=== PATIENT | female | born 1970 | race Caucasian/White ===

== ENCOUNTER 2022-03-24 12:51 | Outpatient (CLI) | payer BC, SELFPAY ==
--- NOTE | 2022-03-24 12:45 | RT.EKG_ITS ---
APPROVED REPORT Exam: Resting ECG Reason for Exam: lightheadedness Patient Location: O HR:47 bpm ECG Measurements Heart Rate 47 AXIS IN 150 P 34 QRSd 101 QRS 35 QT 477 T 53 QTc 422 Conclusion Sinus bradycardia...rate< 50 RSR' in V1 or V2, probably normal variant...small R' only Normal Electrocardiogram
== END 2022-03-24 12:52 | disposition home or self-care (01) ==
LOC: DI.CM 12:52
PROVIDERS: Visit Provider Physician Assistant
DX: R42 Dizziness and giddiness (principal)
CPT/HCPCS: 93010

== ENCOUNTER → 2022-03-29 03:18 | Outpatient (CLI) | payer BC, SELFPAY ==
--- NOTE | 2022-03-29 07:15 | DI.RAD_ITS ---
Exam(s) XR CHEST 2V PA LATERAL EXAM: XR CHEST 2V PA LATERAL CLINICAL HISTORY: back pain, lightheadedness, R42, dizziness, pain between shoulders, ? fluid. TECHNIQUE: 2D digital imaging was performed. COMPARISON: No exams were available for comparison FINDINGS: 2 views: There is platelike atelectasis in the right lung base. Left lung clear. No pleural effusions. Heart size is normal. The mediastinum is not widened. IMPRESSION: There is platelike atelectasis in the right lower lobe. No pleural effusions. DATA REPOSITORY: RADIATION DOSE DELIVERED:
== END ==
PROVIDERS: Visit Provider Physician Assistant
DX: R42 Dizziness and giddiness (principal); J98.11 Atelectasis
CPT/HCPCS: 71046

== ENCOUNTER 2022-03-30 11:09 | Outpatient (CLI) | payer BC, SELFPAY ==
[2022-03-30 12:26] LABS: Abs Immature Grans 0.01 10^3/uL (0.0-0.06); Absolute Basophil Count 0.06 10^3/uL (0.0-0.2); Absolute Eosinophil Count 0.12 10^3/uL (0.0-0.7); Absolute Lymphocyte Count 2.31 10^3/uL (1.2-3.4); Absolute Monocyte Count 0.56 10^3/uL (0.1-0.8); Basophils % 0.9; Eosinophils % 1.9; HCT 34.4 % (36.0-46.0); HGB 11.1 g/dL (11.2-15.7); Immature Grans % 0.2; Lymphocytes % 35.8; MCH 24.7 pg (27.0-33.0); MCHC 32.3 % (32.0-36.0); MCV 76 fL (80-95); MPV 9.5 fL (8.0-11.0); Monocytes % 8.7; Neutrophils % 52.5; Platelet Count 333 10^3/uL (130-400); RDW 15.1 % (11.7-14.6); RDW-SD 41.5 fL; WBC 6.46 10^3/uL (4.4-10.8)
[2022-03-30 12:50] LABS: ALT 17 U/L (14-59); AST 12 U/L (15-37); Alkaline Phosphatase 49 U/L (46-116); Anion Gap 9.5 mmol/L (3-11); BUN 13 mg/dL (7-18); Bilirubin, Total 0.2 mg/dL (0.2-1.0); CO2 27.5 mmol/L (21.0-32.0); CREATININE 1.2 mg/dL (0.55-1.02); Calcium 9.2 mg/dL (8.5-10.1); Chloride 102 mmol/L (98-107); Estimated GFR 55.15 (mL/min/1.73m2); Glucose 85 mg/dL (74-106); Sodium 139 mmol/L (136-145); TSH (W/Ref FT4) 0.86 uIU/mL (0.36-3.74); Total Protein 7.9 g/dL (6.4-8.2)
[2022-03-30 13:04] LABS: D-Dimer 466 ng/mlFEU (<500)
[2022-04-02 10:21] LABS: Lyme Ab w Rflx to Lyme Confirm Negative (Negative)
[2022-04-02 18:31] LABS: Anaplasma phagocytophilum Negative (Negative); B. miyamotoi PCR Negative (Negative); Babesia divergens/MO-1 Negative (Negative); Babesia duncani Negative (Negative); Babesia microti Negative (Negative); Ehrlichia chaffeensis Negative (Negative); Ehrlichia ewingii/canis Negative (Negative); Ehrlichia muris eauclairensis Negative (Negative)
== END 2022-03-30 11:10 | disposition home or self-care (01) ==
LOC: LOS 11:09
PROVIDERS: Visit Provider Physician Assistant
DX: R42 Dizziness and giddiness (principal); R53.83 Other fatigue; R63.5 Abnormal weight gain; R06.02 Shortness of breath
CPT/HCPCS: 36415; 80053; 87798; 84443; 85025; 85379; 86618

== ENCOUNTER 2022-08-24 01:28 | Outpatient (CLI) | payer OTHER, SELFPAY ==
[2022-08-24 08:05] LABS: HCT 33.8 % (36.0-46.0); HGB 10.7 g/dL (11.2-15.7); MCH 24.3 pg (27.0-33.0); MCHC 31.7 % (32.0-36.0); MCV 77 fL (80-95); MPV 8.8 fL (8.0-11.0); Platelet Count 376 10^3/uL (130-400); RDW 15.2 % (11.7-14.6); RDW-SD 42.6 fL; WBC 7.42 10^3/uL (4.4-10.8)
[2022-08-24 09:05] LABS: Total Iron Binding Capacity 362 ug/dL (250-450)
[2022-08-24 09:29] LABS: ALT 14 U/L (14-59); AST 15 U/L (15-37); Albumin 4.1 g/dL (3.4-5.0); Alkaline Phosphatase 64 U/L (46-116); Anion Gap 6.2 mmol/L (3-11); BUN 17 mg/dL (7-18); Bilirubin, Total 0.3 mg/dL (0.2-1.0); CO2 28.8 mmol/L (21.0-32.0); CREATININE 1.2 mg/dL (0.55-1.02); Calcium 9.3 mg/dL (8.5-10.1); Calculated LDL 157 mg/dL (<100); Chloride 103 mmol/L (98-107); Cholesterol 242 mg/dL (<200); Ferritin 7 ng/mL (8-252); Glucose 88 mg/dL (74-106); HDL Cholesterol 63 mg/dL (40-60); Potassium 3.9 mmol/L (3.5-5.1); Sodium 138 mmol/L (136-145); Total Protein 7.8 g/dL (6.4-8.2); Triglyceride 112 mg/dL (<150); Vitamin B12 590 pg/mL (193-986)
[2022-08-24 09:32] LABS: Vitamin D 25 Total 98.3 ng/mL (30-100)
== END 2022-08-24 01:29 | disposition home or self-care (01) ==
LOC: LBO 01:28
PROVIDERS: PCP Nurse Practitioner; Visit Provider Nurse Practitioner
DX: E78.5 Hyperlipidemia, unspecified (principal); E55.9 Vitamin D deficiency, unspecified; D64.9 Anemia, unspecified
CPT/HCPCS: 36415; 80053; 80061; 82306; 85027; 82607; 82728; 83550

== ENCOUNTER 2022-08-28 13:24 | Outpatient (CLI) | payer OTHER, SELFPAY | END 2022-08-28 13:25 | disposition home or self-care (01) | LOC: DI.KIM 13:25 | PROVIDERS: PCP Nurse Practitioner; Visit Provider Nurse Practitioner | CPT/HCPCS: 93010 ==

== ENCOUNTER 2022-09-07 00:22 | Outpatient (CLI) | payer OTHER, SELFPAY ==
--- NOTE | 2022-09-07 06:45 | DI.MAMMO_ITS ---
Exam(s) MAMMO SCREENING EXAM: MAMMO SCREENING CLINICAL HISTORY: screening,Z12.39 TECHNIQUE: Bilateral full field digital CC and MLO mammographic images were obtained with 3D tomosyn thesis and utilizing computer aided detection (CAD). COMPARISON: Available for comparison. FINDINGS: Masses/Architectural Distortion: There is a question of a partially obscured bilobed nodule in the up per left breast on the MLO view. It is 6 cm from the nipple. Microcalcifications: No suspicious pleomorphic-type are seen. Skin Thickening/Nipple Retraction: None. IMPRESSION: 1. Question of a partially obscured nodule in the upper left breast on the MLO view. 2. Spot compression views requested for further evaluation. Limited left breast ultrasound should al so be obtained. BI-RADS Category 0 - Assessment Incomplete: Need additional imaging evaluation Breast Density - Category C - Heterogeneously dense Breast density category C or D implies that the patient has dense breast tissue. Dense breast tissue is very common and is not abnormal but dense breast tissue can make it harder to find cancer on a ma mmogram. Also, dense breast tissue may increase their breast cancer risk. This information about the result of the mammogram report was provided to the patient to raise their awareness. Use this report when you speak with the patient about their risks for breast cancer, which includes their family hist ory. At that time, you may recommend for more screening tests (Ultrasound or MRI) as they might be us eful based on their risk. A negative radiographic report should not delay biopsy if a dominant or clinically suspicious mass is present. Up to ten percent of cancers are not identified on mammography. A negative report may reinforce clinical impression. Adenosis and dense breasts may obscure an underlying neoplasm. False positive reports average 6 to 10%. Patient will receive a letter notifying them of these results.
== END 2022-09-07 00:42 ==
LOC: DI 00:22
PROVIDERS: PCP Nurse Practitioner; Visit Provider Nurse Practitioner
DX: Z12.31 Encounter for screening mammogram for malignant neoplasm of breast (principal); R92.8 Other abnormal and inconclusive findings on diagnostic imaging of breast
CPT/HCPCS: 77063; 77067

== ENCOUNTER 2022-09-07 14:58 | Outpatient (REF) | payer OTHER, SELFPAY ==
--- NOTE | 2022-09-07 13:40 | PAPFT_PTH ---
PATIENT: Amelia Arguello LOC: [facility] U#:[id number] AGE/SX: 52/F ROOM: RE09/07/[address]: Mer Lord MD : 1970 BED: DIS: 09/07/2022 SPEC #: [id number] RECD: 09/07/22 18:21 STATUS: HERMAN REHeather #: [id number] MAEGAN: 09/07/22 13:[address]: Mer Lord DEPT: [facility] Cytology RECD BY: Maude Conley ENTERED: 09/07/22 18:22 SP TYPE: PAPFT MARK DR: Elizabeth Garcia APRN Tissues: 1 - CX/ENDOCX FOR PAP SMEARS Procedures: PAP THIN PREP/UVM Screening HPV DNA PROBE Comments: [id number]
== END 2022-09-07 14:59 | disposition home or self-care (01) ==
LOC: LBN 14:58
PROVIDERS: PCP Nurse Practitioner; Visit Provider Obstetrics & Gynecology
DX: Z12.4 Encounter for screening for malignant neoplasm of cervix (principal); Z11.51 Encounter for screening for human papillomavirus (HPV)
CPT/HCPCS: 88142; 87624

== ENCOUNTER 2022-09-28 00:18 | Outpatient (CLI) | payer OTHER, SELFPAY ==
--- NOTE | 2022-09-28 | DI.US_ITS ---
Exam(s) MG MAMMO SCREEN CALL BACK UNI US BREAST LT COMPLETE EXAM: MG MAMMO SCREEN CALL BACK UNI-LEFT AND COMPLETE LEFT BREAST ULTRASOUND CLINICAL HISTORY: F/U MAMMO, R92.8,? NODULE UPPER LT BREAST. TECHNIQUE: Unilateral LEFT BREAST spot mammographic image obtained with 3D tomosynthesisand [employer] g computer aided detection (CAD). . Complete LEFT breast Ultrasound was also performed, including all 4 quadrants, the retroareolar regio n, and the ipsilateral axilla. COMPARISON: Prior mammograms were reviewed. This additional imaging was performed due to findings described on the recent screening mammogram of 09/07/2022. FINDINGS: DIAGNOSTIC MAMMOGRAM: Additional mammographic views performed todayare somewhat equivocal for the presence of a true nodule at this level. We proceeded with ultrasound. COMPLETE LEFT BREAST ULTRASOUND: Ultrasound performed today reveals multiple cysts, 1 of which may correspond to the finding on the ma mmogram. No solid lesions seen on ultrasound. Cysts are as follows: The largest cyst is at the 3 o'clock position and measures 2.4 by 1.2 cm. Adjacent to this is a smal ler microcyst measuring 4 millimeters. At the 4 o'clock position there is a benign 4 millimeter microcyst also noted. At the 8 o'clock position there is a 6 x 2 millimeter benign microcyst. At the 9 o'clock central position there is a conglomeration of microcysts with combined measurement 1 1 x 10 millimeters. Also at 9 o'clock central position are 2 adjacent microcysts both measuring 6 mm. Scanning of the ipsilateral axilla reveals no significant adenopathy. IMPRESSION: 1. Benign left breast findings as described above, consisting of multiple microcysts and cysts rangi ng up to maximum 2.4 x 1.2 cm (3 o'clock position) these being hidden subjacent to her dense fibrogla ndular tissue on 3D mammography. Most importantly, there are no solid lesions seen in all 4 quadrant s of the left breast. Appropriate follow-up as discussed by myself with the patient today is to keep her on a yearly mammog jaye schedule, with earlier imaging if a self detected breast change is noted. In addition she should undergo repeat breast ultrasound at time for next yearly mammogram and I recommend that this be a bi lateral complete breast ultrasound at that time. The patient was informed of these findings and recommendations by myself prior to leaving the depart ent today. BI-RADS Category 2 - Benign Findings Breast Density - Category C - Heterogeneously dense Breast density Category C or D implies that the patient has dense breast tissue. Dense breast tissue can make it harder to find cancer on a mammogram. Dense breast tissue is also associated with an incr eased risk of breast cancer. This information about the result of the mammogram report was provided to the patient to raise their awareness. Use this report when you speak with the patient about their risks for breast cancer, which includes their family history. At that time, you may recommend additional screening tests (Ultrasoun d or MRI) as these tests may add significant information. A negative radiographic report should not delay biopsy if a dominant or clinically suspicious mass is present. Up to ten percent of cancers are not identified on mammography. A negative report may reinforce clinical impression. Adenosis and dense breasts may obscure an underlying neoplasm. False positive reports average 6 to 10%. Patient will receive a letter notifying them of these results.
== END 2022-09-28 00:38 ==
LOC: DI 00:18
PROVIDERS: PCP Nurse Practitioner; Visit Provider Nurse Practitioner
DX: Z12.31 Encounter for screening mammogram for malignant neoplasm of breast (principal); R92.8 Other abnormal and inconclusive findings on diagnostic imaging of breast; N60.12 Diffuse cystic mastopathy of left breast
CPT/HCPCS: 76642; 77063; 77067

== ENCOUNTER 2022-12-18 15:26 | Emergency (ER) | payer OTHER, SELFPAY ==
[2022-12-18 15:29] VITALS: BP 176/98; PULSE 72; RESP 18; TEMP 36.6; O2SAT 98
--- NOTE | 2022-12-18 15:30 | RT.EKG_ITS ---
APPROVED REPORT Exam: Resting ECG Reason for Exam: high blood pressure Patient Location: E HR:60 bpm ECG Measurements Heart Rate 60 AXIS SD 143 P 36 QRSd 71 QRS 24 QT 416 T 65 QTc 417 Conclusion Sinus rhythm...normal P axis, V-rate 60- 99
--- NOTE | 2022-12-18 16:10 | ED.GENADUL_ITS ---
Discharge Plan Disposition Patient Disposition: Home Condition: Improving Discharge Details Clinical Impression: Hypertension Primary Care Provider: Elizabeth Garcia ED Provider: Marisol Miles Home Meds and New Rx's Prescriptions: New lisinopril 10 mg tablet 10 mg PO DAILY 30 Days Qty: 30 0RF Rx Instructions: Take one tablet by mouth daily Continued cholecalciferol (vitamin D3) 125 mcg (5,000 unit) capsule 125 mcg PO DAILY omeprazole 20 mg tablet,delayed release (DR/EC) 20 mg PO DAILY bupropion HCl [Wellbutrin XL] 300 mg tablet extended release 24 hr 300 mg PO QAM Qty: 90 1RF hydroxyzine HCl 25 mg tablet See Rx Instructions PO QHS PRN (Reason: anxiety) Qty: 180 1RF Rx Instructions: orally every day at bedtime PRN; 1-2 at HS PRN vitamin B complex Tablet 1 tab PO DAILY magnesium glycinate 100 mg magnesium capsule 100 mg PO DAILY levonorgestrel-ethinyl estrad 0.1-20 mg-mcg tablet 1 tab PO DAILY Qty: 84 6RF Rx Instructions: Take continuously. Skip the placebo pills at the end of the pack and start the next pack right away. famotidine 20 mg tablet 20 mg PO QHS lisdexamfetamine 40 mg capsule 40 mg PO DAILY MDD 40mg Qty: 28 0RF Discharge Instructions Instructions: Hypertension (ED) Additional Instructions: Check your blood pressure at the same time every day. Take the medication as directed. Please discuss this with your primary care provider and have close follow-up within the next few days. Follow up with primary care provider in 3-5 days. Return to ED sooner if any worsening or concerns. Increase oral fluids. EKG and labs are within normal limits. CT WNL. Referrals: Elizabeth Garcia, [employer] [Primary Care Provider] - 3 days Medical Decision Making 52-year-old female presents to the ER with a chief complaint of high blood pressure reading, fatigue mild headache which she describes as pressure in the last few days. She does have a history of depression anxiety ADHD. She reports taking a propanolol which she has for anxiety and noting that her blood pressure went up. She denies any chest pain she does have some mild shortness of breath. Some mild nausea. Denies any vomiting no blurry vision. She was seen with women's wellness yesterday and they noted high blood pressure as well. No other associated symptoms. EKG was reviewed by Dr. Cadet ER attending, please see his official report, old EKG available for review. Work-up ordered including CBC, troponin magnesium CMP. Did discuss that we do not regularly drop blood pressure significantly unless it is very high in the ER. This is usually done through primary care. Patient very tearful upon discharge. Discussed blood pressure medication and reasoning behind it. She verbalized understanding. I did discuss the reasoning at length. 1816: Informed by medical staff services coordinator that patient is now complaining of some sharp chest pain radiating underneath her left breast. CT chest ordered. CBC shows no leukocytosis, CMP largely unremarkable creatinine is slightly elevated at 1.2 however this does appear to be at patient's baseline, initial troponin is less than 50 which is within normal limits. CT within normal limits no dissection, no PE. No aortic aneurysm. Repeat blood pressure slightly lower at 167/99 after 10 milligrams of lisinopril. Will discuss CT results with patient and have patient follow-up with PCP. Patient given 0.5mg Lorazepam PO prior to discharge. This text was generated using [employer] system, please disregard any oddities of phrase or misspellings. Medical Records Medical records reviewed: Yes I reviewed the patient's medical records. Imaging Data Radiologic Study: Imaging: CT Scan Radiologist's impression: CR XR CHEST 2V PA LATERAL 03/29/2022 8:26 AM FINDINGS: Pulmonary arteries: No pulmonary emboli. Aorta: No aortic aneurysm. No aortic dissection. Lungs: Minimal subsegmental atelectasis at the lung bases. No consolidation. No masses. Pleural spaces: Unremarkable. No pneumothorax. No pleural effusion. Heart: Unremarkable. No cardiomegaly. No pericardial effusion. Lymph nodes: Unremarkable. No enlarged lymph nodes. Bones/joints: Unremarkable. No acute fracture. Soft tissues: Unremarkable. A small hiatal hernia is detected. Prior cholecystectomy IMPRESSION: No acute findings. No pulmonary emboli or aortic dissection Small hiatal hernia Thank you for allowing us to participate in the care of your patient. Dictated and Authenticated by: Grant Nuñez MD Lab Data Lab results reviewed: Yes I reviewed the patient's lab results. Labs: Laboratory Tests Range/Units 12/18/22 12/18/22 12/18/22 16:30 16:30 19:10 WBC (4.4-10.8) 10^3/uL 9.08 RBC (3.93-5.22) 10^6/uL 4.92 Hgb (11.2-15.7) g/dL 12.1 Hct (36.0-46.0) % 36.8 MCV (80-95) fL 75 L MCH (27.0-33.0) pg 24.6 L MCHC (32.0-36.0) % 32.9 RDW (11.7-14.6) % 17.0 H Plt Count (130-400) 10^3/uL 376 MPV (8.0-11.0) fL 9.1 Immature Gran % 0.2 Neutrophils % 53.9 Lymphocytes % 38.0 Monocytes % 5.9 Eosinophils % 1.2 Basophils % 0.8 Nucleated RBC % (0.0-0.3) % 0.0 Absolute Neutrophils (1.2-6.7) 10^3/uL 4.89 Absolute Lymphocytes (1.2-3.4) 10^3/uL 3.45 H Absolute Monocytes (0.1-0.8) 10^3/uL 0.54 Absolute Eosinophils (0.0-0.7) 10^3/uL 0.11 Absolute Basophils (0.0-0.2) 10^3/uL 0.07 RBC Morphology See Below Microcytosis 1+ Sodium (136-145) mmol/L 138 Potassium (3.5-5.1) mmol/L 3.9 Chloride (98-107) mmol/L 105 Carbon Dioxide (21.0-32.0) mmol/L 25.3 Anion Gap (3-11) mmol/L 7.7 BUN (7-18) mg/dL 13 Creatinine (0.55-1.02) mg/dL 1.2 H Est GFR (CKD-EPI 2020) (mL/min/1.73m2) 54.80 Glucose (74-106) mg/dL 93 Calcium (8.5-10.1) mg/dL 8.8 Magnesium (1.8-2.4) mg/dL 2.3 Total Bilirubin (0.2-1.0) mg/dL 0.2 AST (15-37) U/L 15 ALT (14-59) U/L 28 Alkaline Phosphatase (46-116) U/L 64 Troponin I (<or=60) ng/L < 50 Cancelled Total Protein (6.4-8.2) g/dL 7.6 Albumin (3.4-5.0) g/dL 3.7 HPI General Mode of arrival: ambulatory . Date/Time Provider Initiated Documentation: 12/18/22 15:33 . Limitations to Documentation: no limitations . Information obtained by: patient, RN notes reviewed and old records reviewed . HPI Narrative: 52-year-old female presents to the ER with a chief complaint of high blood pressure reading, fatigue mild headache which she describes as pressure in the last few days. She does have a history of depression anxiety ADHD. She reports taking a propanolol which she has for anxiety and noting that her blood pressure went up. She denies any chest pain she does have some mild shortness of breath. Some mild nausea. Denies any vomiting no blurry vision. She was seen with women's wellness yesterday and they noted high blood pressure as well. No other associated symptoms. Related Data Home Medications Medication Instructions Recorded Confirmed cholecalciferol (vitamin D3) 125 125 mcg PO DAILY 03/24/22 12/18/22 mcg (5,000 unit) capsule omeprazole 20 mg tablet,delayed 20 mg PO DAILY 03/24/22 12/18/22 release bupropion HCl 300 mg 24 hr tablet, 300 mg PO QAM #90 tabs 08/14/22 12/18/22 extended release (Wellbutrin XL) hydroxyzine HCl 25 mg tablet See Rx Instructions PO QHS PRN 08/14/22 12/18/22 anxiety #180 tabs levonorgestrel-ethinyl estradiol 1 tab PO DAILY #84 tabs 09/07/22 12/18/22 0.1 mg-20 mcg tablet magnesium glycinate 100 mg PO DAILY 09/07/22 12/18/22 vitamin B complex 1 tab PO DAILY 09/07/22 12/18/22 lisdexamfetamine 40 mg capsule 40 mg PO DAILY #28 caps 11/14/22 12/18/22 famotidine 20 mg tablet 20 mg PO QHS 12/18/22 12/18/22 lisinopril 10 mg tablet 10 mg PO DAILY 30 days #30 tabs 12/18/22 Previous Rx's Medication Instructions Recorded bupropion HCl 300 mg 24 hr tablet, 300 mg PO QAM #90 tabs 08/14/22 extended release (Wellbutrin XL) hydroxyzine HCl 25 mg tablet See Rx Instructions PO QHS PRN 08/14/22 anxiety #180 tabs levonorgestrel-ethinyl estradiol 1 tab PO DAILY #84 tabs 09/07/22 0.1 mg-20 mcg tablet lisdexamfetamine 40 mg capsule 40 mg PO DAILY #28 caps 11/14/22 lisinopril 10 mg tablet 10 mg PO DAILY 30 days #30 tabs 12/18/22 Allergies Allergy/AdvReac Type Severity Reaction Status Date / Time Penicillins Allergy Severe Hives Verified 12/18/22 10:13 prochlorperazine Allergy Severe torticolus Verified 12/18/22 10:13 [From Compazine] and muscle spasms promethazine Allergy Severe torticolitis Verified 12/18/22 10:13 and other muscle spasms nystatin Allergy Intermediate rash Verified 12/18/22 10:13 worsened citalopram AdvReac Unknown Verified 12/18/22 10:13 escitalopram [From Lexapro] AdvReac Unknown Intolerant Verified 12/18/22 10:13 due to Side effects paroxetine [From Paxil] AdvReac Unknown side Verified 12/18/22 10:13 effects General Stated Complaint: [employer] RADHAMES: 3 PFSH All Active Problems (Updated 12/18/22 @ 17:10 by Marisol Miles NP) Depression (Chronic) Anxiety (Chronic) ADHD (Acute) Seasonal allergies (Acute) Autism (Acute) Stress incontinence of urine (Acute) Perimenopausal (Acute) Premenstrual dysphoric disorder (Acute) Binge eating disorder (Acute) Elevated BP without diagnosis of hypertension (Acute) Hypertension (Chronic) Medical History (Updated 12/18/22 @ 17:10 by Marisol Miles NP) H/O hyperemesis gravidarum with all Polycystic ovarian syndrome Surgical History (Updated 05/25/22 @ 10:39 by Eun Ba RN, RN) S/P cholecystectomy 04/12 AT [facility] Family History (Updated 05/25/22 @ 11:18 by Eun Ba RN, RN) Mother Anxiety Depression Hypertension Sister Anxiety Depression Daughter Anxiety Depression Son Anxiety Depression Father Hypertension Glioblastoma Daughter No problems noted. Son No problems noted. Daughter No problems noted. Son No problems noted. Daughter No problems noted. Daughter No problems noted. Son No problems noted. Daughter No problems noted. Paternal Grandmother Breast cancer Diabetes Social History (Updated 08/14/22 @ 15:46 by Kia Clark LPN) Smoking/Tobacco Use Status: Former Tobacco Use tobacco type: cigarettes Quit Date: 07/29/14 Tobacco: How many years used: 11 Quit status: has quit before Second Hand Exposure: No Smoking risk assessment performed?: Yes Alcohol Intake: current Alcohol Intake frequency: a few times a month Drug use: Occasionally Substance use type: marijuana Adopted: No Caregiver/Support person: No Foster care: No Household members: spouse and children Housing: house Number of Children: 10 number of grandchildren: 1 Communication Needs: None Education Level: vocational Do you need help understanding health information?: Rarely current occupation: Unemployed Student - nursing school Pets and animals: Yes (2 cats, 1 dog) Pets and animals: cat(s) and dog(s) Sexually active: Yes Do you think of yourself as: straight/heterosexual Current gender identity: female What is your relationship status?: How often do you talk on the phone with friends or family?: once per week Do you belong to any clubs or organized social groups?: no Panel score (0-1 are the most socially isolated patients): 1 What type of physical activity do you participate in: walking Duration: 15-30 minutes/day Frequency: 1-2 times per week Shivani/Islam: Sabianism Special shivani needs: No Seatbelt use: always Helmet use: Yes Drive intox or ride w/intox feeder driver: No Do you feel safe at home: Yes Do you feel safe in your relationship?: Yes Female Reproductive History Menstrual Age of Menarche: 13 Duration of menses: 3-5 days control method: natural family planning History History 12 Para Hx # Term Pregnancies 10 Multiple births Hx # Pregnancies Ectopic pregnancies AB induced Hx Number of Living Children AB spontaneous Past Pregnancies Del. Date GA/Weeks # Preg Succ Route Wgt Sex Labor Lgth Anesth esia Location [facility] 09/28/89 40 No Yes vaginal Female [place] 12/05/91 40 No Yes vaginal 3288.545 g Female [facility] 02/09/95 40 No Yes vaginal 3118.448 g Male [facility] 12/25/96 40 No Yes vaginal 3628.739 g Male [facility] 10/15/01 40 No Yes vaginal 3855.535 g Female [facility] 07/21/04 40 No Yes vaginal 3798.836 g Male [facility] 04/11/07 40 No Yes vaginal 3345.244 g Female [facility] 06/01/09 40 No Yes vaginal 3061.748 g Female [facility] 05/09/11 40 No Yes vaginal 3798.836 g Male [facility] 02/09/15 40 No Yes vaginal 3628.739 g Female [facility] Delivery Date: 02/09/15 Last Updated by: Qian Martin Pt reports excess amniotic fluid, external version d/t transverse presentation and hyperthyroidism. Course Vital Signs Vital signs: Vital Signs Temperature 36.6 C 12/18/22 15:29 Pulse 72 12/18/22 15:29 Respiratory Rate 18 12/18/22 15:29 Blood Pressure 176/98 H 12/18/22 15:29 Pulse Oximetry 98 12/18/22 15:29 Temperature 36.6 C 12/18/22 15:29 Temperature Source Temporal Artery Scan 12/18/22 15:29 Pulse 72 12/18/22 15:29 Respiratory Rate 18 12/18/22 15:29 Respiratory Effort Normal, Non-Labored 12/18/22 15:33 Blood Pressure 176/98 H 12/18/22 15:29 Blood Pressure Position Sitting 12/18/22 15:29 Pulse Oximetry 98 12/18/22 15:29
[2022-12-18 16:39] LABS: Abs Immature Grans 0.02 10^3/uL (0.0-0.06); Absolute Basophil Count 0.07 10^3/uL (0.0-0.2); Absolute Eosinophil Count 0.11 10^3/uL (0.0-0.7); Absolute Lymphocyte Count 3.45 10^3/uL (1.2-3.4); Absolute Monocyte Count 0.54 10^3/uL (0.1-0.8); Absolute Neutrophil Count 4.89 10^3/uL (1.2-6.7); Basophils % 0.8; Eosinophils % 1.2; HCT 36.8 % (36.0-46.0); HGB 12.1 g/dL (11.2-15.7); Immature Grans % 0.2; MCH 24.6 pg (27.0-33.0); MCHC 32.9 % (32.0-36.0); MCV 75 fL (80-95); MPV 9.1 fL (8.0-11.0); Monocytes % 5.9; Neutrophils % 53.9; Platelet Count 376 10^3/uL (130-400); RBC 4.92 10^6/uL (3.93-5.22); WBC 9.08 10^3/uL (4.4-10.8)
[2022-12-18 16:56] LABS: Diff Comment RBC Morph Reviewed; Microcytosis 1+
[2022-12-18 16:57] LABS: ALT 28 U/L (14-59); AST 15 U/L (15-37); Albumin 3.7 g/dL (3.4-5.0); Alkaline Phosphatase 64 U/L (46-116); Anion Gap 7.7 mmol/L (3-11); BUN 13 mg/dL (7-18); Bilirubin, Total 0.2 mg/dL (0.2-1.0); CO2 25.3 mmol/L (21.0-32.0); CREATININE 1.2 mg/dL (0.55-1.02); Calcium 8.8 mg/dL (8.5-10.1); Chloride 105 mmol/L (98-107); Glucose 93 mg/dL (74-106); Magnesium 2.3 mg/dL (1.8-2.4); Potassium 3.9 mmol/L (3.5-5.1); Sodium 138 mmol/L (136-145); Total Protein 7.6 g/dL (6.4-8.2); Troponin I < 50 ng/L (<or=60)
[2022-12-18 17:21] VITALS: BP 177/112; PULSE 70; RESP 18; TEMP 37.2; O2SAT 99
[2022-12-18] MEDS: Lisinopril 10 MG TAB PO (17:49)
--- NOTE | 2022-12-18 18:15 | DI.CT_ITS ---
Exam(s) CT CHEST PE CTA EXAM: CT CHEST PE CTA CLINICAL HISTORY: Chest Pain. TECHNIQUE: Imaging Protocol: CT angiography of the chest was performed using pulmonary embolus manuel col. Multi planar reconstructions were performed. CONTRAST MATERIAL: Intravenous: Omnipaque 350 Contrast volume: 100 cc COMPARISON: No exams were available for comparison FINDINGS: CHEST: PULMONARY ARTERIES: There are no intraluminal filling defects to suggest acute pulmonary emboli. LUNGS: There are no infiltrates nor evidence of pulmonary infarction.. There are no pleural effusions . MEDIASTINUM: There is no hilar nor mediastinal adenopathy. Visualized thyroid unremarkable. CARDIAC: Heart size is normal. There is no pericardial effusion.Caliber of the thoracic aorta is wi thin normal limits. There is no significant shift of the interventricular septum. PARTIALLY VISUALIZED UPPERMOST ABDOMEN: No obvious findings OSSEOUS: No significant osseous lesions.. IMPRESSION: 1. No evidence of acute pulmonary emboli. No evidence of pulmonary infarction.No pleural effusions. 2. No significant pulmonary findings. RADIATION DOSE DELIVERED: 459.17mGy.cm Total DLP DATA REPOSITORY: All CT scans at this facility are submitted to the National Radiology Data Registry (NRDR) Dose Index Registry (DIR) with the [employer] (ACR). RADIATION OPTIMIZATION: All CT scans at this facility use at least one of these dose optimization te chniques: automated exposure control; mA and/or kV adjustment per patient size (includes targeted exa ms where dose is matched to clinical indication); or iterative reconstruction.
[2022-12-18] MEDS: Omnipaque 350 MG/ML 100 ML BTL IJ (19:18)
[2022-12-18] MEDS: Normal Saline Flush 10 ML SYR IVP (19:22)
--- NOTE | 2022-12-18 19:31 | DI.VRAD_ITS ---
PROCEDURE INFORMATION: Exam: CTA Chest With Contrast Exam date and time: 12/18/2022 6:28 PM Age: 52 years old Clinical indication: Chest wall pain; Prior surgery; Surgery date: 6+ months; Surgery type: Cholecystectomy; Patient HX: Chest pain TECHNIQUE: Imaging protocol: Computed tomographic angiography of the chest with contrast. Exam focused on the arteries. 3D rendering (Not supervised by radiologist): MIP and/or 3D reconstructed images were created by the technologist. Contrast material: OMNIPAQUE 350; Contrast volume: 90 ml; Contrast route: INTRAVENOUS (IV); COMPARISON: CR XR CHEST 2V PA LATERAL 03/29/2022 8:26 AM FINDINGS: Pulmonary arteries: No pulmonary emboli. Aorta: No aortic aneurysm. No aortic dissection. Lungs: Minimal subsegmental atelectasis at the lung bases. No consolidation. No masses. Pleural spaces: Unremarkable. No pneumothorax. No pleural effusion. Heart: Unremarkable. No cardiomegaly. No pericardial effusion. Lymph nodes: Unremarkable. No enlarged lymph nodes. Bones/joints: Unremarkable. No acute fracture. Soft tissues: Unremarkable. A small hiatal hernia is detected. Prior cholecystectomy IMPRESSION: No acute findings. No pulmonary emboli or aortic dissection Small hiatal hernia Dictated and Authenticated by: Grant Nuñez MD. Ordering:GEGE Damon MD
[2022-12-18 19:33] VITALS: BP 167/99; PULSE 62; RESP 16; O2SAT 99
[2022-12-18] MEDS: LORazepam 0.5 MG TAB PO (20:12)
== END 2022-12-18 20:22 | disposition home or self-care (01) ==
PROVIDERS: Emergency Provider Registered Nurse Emergency; PCP Nurse Practitioner
DX: I10 Essential (primary) hypertension (principal); R51.9 Headache, unspecified; R53.83 Other fatigue
CPT/HCPCS: 36415; 71275; 80053; 93005; 99284; 83735; 84484; 85025; 93010; J3490

== ENCOUNTER 2023-01-03 03:04 | Outpatient (CLI) | payer OTHER, SELFPAY ==
[2023-01-03 11:55] LABS: Hemoglobin A1C 5.4 % (<5.7)
[2023-01-04 10:20] LABS: HBs Antibody, Quant <3.1 mIU/mL (See Note); Hepatitis B Surface Ab Negative (See Note)
[2023-01-04 11:08] LABS: Measles IgG Antibody Positive (See Note); Mumps Antibody IgG Positive (See Note); Rubella IgG Ab (UVM) Positive (See Note); Varicella IgG Antibody Positive (See Note)
[2023-01-07 12:28] LABS: TB Interpretation Negative (Negative); TB2 Ag minus Nil 0.01 IU/mL
== END 2023-01-03 03:05 | disposition home or self-care (01) ==
LOC: LBO 03:04
PROVIDERS: PCP Nurse Practitioner; Visit Provider Nurse Practitioner
DX: R73.01 Impaired fasting glucose (principal); Z11.1 Encounter for screening for respiratory tuberculosis; Z01.84 Encounter for antibody response examination; Z11.59 Encounter for screening for other viral diseases
CPT/HCPCS: 36415; 86706; 86787; 83036; 86480; 86735; 86762; 86765

== ENCOUNTER 2023-10-21 05:04 | Outpatient (CLI) | payer OTHER, SELFPAY ==
[2023-10-21 07:40] LABS: Abs Immature Grans 0.01 10^3/uL (0.0-0.06); Absolute Basophil Count 0.06 10^3/uL (0.0-0.2); Absolute Lymphocyte Count 2.33 10^3/uL (1.2-3.4); Absolute Monocyte Count 0.38 10^3/uL (0.1-0.8); Absolute Neutrophil Count 4.19 10^3/uL (1.2-6.7); Basophils % 0.8; Eosinophils % 1.4; HCT 38.1 % (36.0-46.0); HGB 12.7 g/dL (11.2-15.7); Immature Grans % 0.1; MCHC 33.3 % (32.0-36.0); MCV 84 fL (80-95); MPV 8.9 fL (8.0-11.0); Monocytes % 5.4; Neutrophils % 59.3; Platelet Count 359 10^3/uL (130-400); RBC 4.54 10^6/uL (3.93-5.22); RDW 13.3 % (11.7-14.6); RDW-SD 41.4 fL; WBC 7.07 10^3/uL (4.4-10.8)
[2023-10-21 08:37] LABS: Anion Gap 8.6 mmol/L (3-11); BUN 10 mg/dL (7-18); CO2 26.4 mmol/L (21.0-32.0); CREATININE 1.2 mg/dL (0.55-1.02); Calcium 9.1 mg/dL (8.5-10.1); Calculated LDL 156 mg/dL (<100); Chloride 101 mmol/L (98-107); Cholesterol 245 mg/dL (<200); Estimated GFR 54.46 (mL/min/1.73m2); Ferritin 17 ng/mL (8-252); Glucose 81 mg/dL (74-106); HDL Cholesterol 72 mg/dL (40-60); Potassium 3.9 mmol/L (3.5-5.1); Sodium 136 mmol/L (136-145); TSH (W/Ref FT4) 1.87 uIU/mL (0.36-3.74); Triglyceride 87 mg/dL (<150)
== END 2023-10-21 05:05 | disposition home or self-care (01) ==
LOC: LBO 05:04
PROVIDERS: PCP Nurse Practitioner; Referring Provider Nurse Practitioner; Visit Provider Nurse Practitioner
DX: E78.5 Hyperlipidemia, unspecified (principal); D64.9 Anemia, unspecified; I10 Essential (primary) hypertension
CPT/HCPCS: 36415; 80048; 80061; 82728; 84443; 85025

== ENCOUNTER 2024-03-20 00:13 | Outpatient (CLI) | payer BC, OTHER, SELFPAY ==
--- NOTE | 2024-03-20 | DI.US_ITS ---
Exam(s) US BREAST LT COMPLETE US BREAST RT COMPLETE MG MAMMO SCREENING EXAM: MG MAMMO SCREENING CLINICAL HISTORY: screening,z12.39,h/o breast cysts. TECHNIQUE: Spot compression digital Mammography views of the bothbreasts with Tomosynthesis followe d by bilateral breast ultrasound. COMPARISON: MG SCREENING MAMMO W/3D TOMOSYNTHESIS from 09/04/2016 MG SCREENING MAMMO W/3D TOMOSYNTHESIS from 03/11/2020 MG MG MAMMO SCREENING from 09/07/2022 MG MG MAMMO SCREEN CALL BACK UNI from 09/28/2022 US US BREAST LT COMPLETE from 09/28/2022 US US BREAST RT COMPLETE from 03/20/2024 US US BREAST LT COMPLETE from 03/20/2024 FINDINGS: RIGHT BREAST: Mammography/Tomosynthesis: Masses/Architectural Distortion: Large area seen lateral to the nipple, measuring approximately 3 cm. Microcalcifictions: No suspicious pleomorphic-type are seen. Skin Thickening/Nipple Retraction: None. Right breast US: Echotexture: Normal appearance of the glandular tissue. Shadowing: No suspicious foci. Cyst: Cyst in the 9 o'clock position, 1 cm from the nipple, measuring 3.1 x 1.2 x 1.5 cm. [address] cyst in the 10 o'clock position. Three adjacent cysts are noted in the 2 o'clock position Solid lesions: None seen. Ductal dilation: None. LEFT BREAST: Mammography/Tomosynthesis: Masses/Architectural Distortion: 2 centimeter circumscribed nodule seen laterally. Microcalcifictions: No suspicious pleomorphic-type are seen. Skin Thickening/Nipple Retraction: None. Left breast ultrasound: Echotexture: Normal appearance of the glandular tissue. Shadowing: No suspicious foci. Cyst: 1.5 x 0.7 x 1.2 centimeter cyst in the 3 o'clock position 1 cm from the nipple. Clustered micr ocysts in the 9 o'clock position, 3 cm from the nipple measuring 1.5 x 0.6 x 0.4 cm. Solid lesions: None seen. Ductal dilation: None. IMPRESSION: 1. Right breast: No evidence of malignancy is noted.Multiple cysts. 2. Left breast: No evidence of malignancy is noted. Multiple cysts. 3. Unless there is more urgent need, follow-up screening mammography is recommended, as per [employer] guidelines. 4. The findings were discussed with the patient on the date of the examination. BI-RADS Category 2 - Benign Findings Breast Density - Category C - Heterogeneously dense A mammogram that demonstrates density of C or D indicates the patient's breast tissue is dense. Dense breast tissue is very common and is not abnormal, but dense breast tissue can make it harder to find cancer on a mammogram. Also, dense breast tissue may increase their breast cancer risk. This informa tion about the result of the mammogram report was provided to the patient to raise their awareness. U se this report when you speak with the patient about their risks for breast cancer, which includes th eir family history. At that time, you may recommend for more screening tests (Ultrasound or MRI) as t hey might be useful based on their risk. A negative radiographic report should not delay biopsy if a dominant or clinically suspicious mass is present. Up to ten percent of cancers are not identified on mammography. A negative report may reinforce clinical impression. Adenosis and dense breasts may obscure an underlying neoplasm. False positive reports average 6 to 10%. Patient will receive a letter notifying them of these results.
== END 2024-03-20 00:33 ==
PROVIDERS: PCP Nurse Practitioner; Visit Provider Nurse Practitioner
DX: N60.02 Solitary cyst of left breast (principal); Z12.31 Encounter for screening mammogram for malignant neoplasm of breast
CPT/HCPCS: 76642; 77063; 77067

== ENCOUNTER 2024-10-29 18:47 | Emergency (ER) | payer BC, OTHER, SELFPAY ==
[2024-10-29 18:49] VITALS: BP 185/104; PULSE 92; RESP 18; TEMP 36.9; O2SAT 99
--- NOTE | 2024-10-29 19:00 | DI.CT_ITS ---
Exam(s) CT HEAD FACIAL WO EXAM: CT HEAD FACIAL WO CLINICAL HISTORY: fall, anterior head and face pain. TECHNIQUE: Imaging Protocol: Axial computed tomography images with coronal and sagittal reformatted images were created and reviewed COMPARISON: No exams were available for comparison FINDINGS: BRAIN: There are no skull fractures nor fluid in the visualized paranasal sinuses. There is no evidence of intracranial hemorrhage, mass effect, or shift of midline structures. There are no extra-axial fluid collections. The ventricles are not enlarged or shifted and there is no blo od within the ventricular system nor within the basal cisterns. MAXILLOFACIAL CT SCAN: There is no evidence of facial fractures and no evidence of orbital blowout fracture. Some mild muco brock thickening is noted in both maxillary sinuses without distinct fluid levels therein. Other paran neda sinuses are clear. x there is some soft tissue swelling in the right infraorbital region and right paranasal region with laceration at this level and subcutaneous gas. There is no nasal bone fracture evident. IMPRESSION: No acute intracranial findings on this noninfused CT scan of the brain. No evidence of facial bone fractures nor orbital fractures. There is right paranasal/right infraorbital soft tissue swelling with soft tissue gas most probably r elated to laceration at this level. There is no radiopaque foreign body. There is no nasal bone fra cture. RADIATION DOSE DELIVERED: 1,289.68mGy.cm Total DLP DATA REPOSITORY: All CT scans at this facility are submitted to the National Radiology Data Registry (NRDR) Dose Index Registry (DIR) with the [employer] (A[employer]). RADIATION OPTIMIZATION: All CT scans at this facility use at least one of these dose optimization te chniques: automated exposure control; mA and/or kV adjustment per patient size (includes targeted exa ms where dose is matched to clinical indication); or iterative reconstruction.
--- NOTE | 2024-10-29 19:02 | ED.GENADUL_ITS ---
Discharge Plan Disposition Patient Disposition: Home Condition: Stable Discharge Details Clinical Impression: Fall, Facial trauma Primary Care Provider: Elizabeth Garcia ED Provider: Margarito Glover Home Meds and New Rx's Prescriptions: Continued cetirizine [Zyrtec] 10 mg tablet 10 mg PO BID bupropion HCl [Wellbutrin XL] 300 mg tablet extended release 24 hr 300 mg PO QAM Qty: 90 3RF lisdexamfetamine 50 mg capsule 50 mg PO DAILY MDD 50mg Qty: 28 0RF lisdexamfetamine 50 mg capsule 50 mg PO DAILY MDD 50mg Qty: 28 0RF lisdexamfetamine 50 mg capsule 50 mg PO DAILY MDD 50mg Qty: 28 0RF cholecalciferol (vitamin D3) 125 mcg (5,000 unit) capsule 125 mcg PO DAILY vitamin B complex Tablet 1 tab PO DAILY magnesium glycinate 100 mg magnesium capsule 400 mg PO DAILY famotidine 20 mg tablet 20 mg PO QHS Discharge Instructions Additional Instructions: Your imaging did not show any concerning findings at this time. Follow-up with your primary care provider if your continuing to have facial or head pain in a week. If you feel more ill or have severe worsening pain or noticed redness running from the wound return to the emergency department for reevaluation HPI General Mode of arrival: ambulatory . Date/Time Provider Initiated Documentation: 10/29/24 18:52 . Limitations to Documentation: no limitations . Information obtained by: patient . History of Present Illness 54 year old F presents to the emergency department with the chief complaint of Fall, facial pain, described as moderate, Quality is described as aching, Patient reports no radiation. Patient started experiencing this day(s) (1) and it has been constant. No relieving factors improve symptom(s), No exacerbating factors reported . Patient notes no other symptoms.. Patient did receive the following treatments prior to arrival, none Related Data Home Medications ?Medication ?Instructions ?Recorded ?Confirmed cholecalciferol (vitamin D3) 125 125 mcg PO DAILY 03/24/22 10/29/24 mcg (5,000 unit) capsule vitamin B complex 1 tab PO DAILY 09/07/22 10/29/24 famotidine 20 mg tablet 20 mg PO QHS 12/18/22 10/29/24 magnesium glycinate 400 mg PO DAILY 12/31/22 10/29/24 cetirizine 10 mg tablet (Zyrtec) 10 mg PO BID 12/18/23 10/29/24 bupropion HCl 300 mg 24 hr tablet, 300 mg PO QAM #90 tabs 03/10/24 10/29/24 extended release (Wellbutrin XL) lisdexamfetamine 50 mg capsule 50 mg PO DAILY #28 caps 09/09/24 10/29/24 lisdexamfetamine 50 mg capsule 50 mg PO DAILY #28 caps 09/09/24 10/29/24 lisdexamfetamine 50 mg capsule 50 mg PO DAILY #28 caps 09/09/24 10/29/24 Previous Rx's ?Medication ?Instructions ?Recorded bupropion HCl 300 mg 24 hr tablet, 300 mg PO QAM #90 tabs 03/10/24 extended release (Wellbutrin XL) lisdexamfetamine 50 mg capsule 50 mg PO DAILY #28 caps 09/09/24 lisdexamfetamine 50 mg capsule 50 mg PO DAILY #28 caps 09/09/24 lisdexamfetamine 50 mg capsule 50 mg PO DAILY #28 caps 09/09/24 Allergies Allergy/AdvReac Type Severity Reaction Status Date / Time Penicillins Allergy Severe Hives Verified 10/29/24 18:52 prochlorperazine (From Allergy Severe torticolus Verified 10/29/24 18:52 Compazine) and muscle spasms promethazine Allergy Severe torticolitis Verified 10/29/24 18:52 and other muscle spasms nystatin Allergy Intermediate rash Verified 10/29/24 18:52 worsened citalopram AdvReac Unknown raised Verified 10/29/24 18:52 basal body temp escitalopram (From Lexapro) AdvReac Unknown Intolerant Verified 10/29/24 18:52 due to Side effects paroxetine (From Paxil) AdvReac Unknown Nausea Verified 10/29/24 18:52 ESSENCE Inhibitors AdvReac Swelling/Ed Verified 10/29/24 18:52 antwan General Stated Complaint: Trauma RADHAMES: 3 Review of Systems All systems reviewed & are unremarkable except as noted in HPI and below Constitutional Constitutional: Denies chills, Denies fever(s) and Denies weakness Cardiovascular Cardiovascular: Denies chest pain and Denies dyspnea Respiratory Respiratory: Denies cough and Denies dyspnea Gastrointestinal Gastrointestinal: Denies abdominal pain, Denies nausea and Denies vomiting Musculoskeletal Musculoskeletal: Denies joint swelling Neurologic Neurologic: Denies weakness Exam Const General: no acute distress Orientation: alert HENMT Head: no palpable skull fracture Ears: external ears normal General nose exam: external nose normal Mouth: moist mucous membranes Eyes General: appearance normal, both eyes and all related structures Neck Neck: normal visual inspection Resp Effort & Inspection: normal respiratory effort and able to speak in complete sentences Cardio Rate: regular rate Skin General skin exam: no rashes or lesions noted Neuro General: patient alert and patient oriented x3 Extrem General: normal to inspection Psych Mental Status: mental status grossly normal Course Vital Signs Vital signs: Vital Signs Temperature 36.9 C 10/29/24 18:49 Pulse 92 H 10/29/24 18:49 Respiratory Rate 18 10/29/24 18:49 Blood Pressure 185/104 H 10/29/24 18:49 Pulse Oximetry 99 10/29/24 18:49 Temperature 36.9 C 10/29/24 18:49 Temperature Source Temporal Artery Scan 10/29/24 18:49 Pulse 92 H 10/29/24 18:49 Respiratory Rate 18 10/29/24 18:49 Blood Pressure 185/104 H 10/29/24 18:49 Pulse Oximetry 99 10/29/24 18:49 Oxygen Delivery Method Room Air 10/29/24 18:49 Oxygen Flow Rate 0 10/29/24 18:49 Medical Decision Making 54-year-old female comes in with anterior head pain and facial pain after she tripped on the sidewalk and fell forward landing on her face. She did not lose consciousness and no vomiting. She has an abrasion over her mid nose and also underneath her right orbit. She has no periorbital swelling, no scalp hematomas. No neck tenderness, no T or L-spine tenderness no chest or abdomen tenderness. Patient is moving all extremities well. Given the fall and her pain will obtain CT head and face. CT with no concerning findings. I cleaned the wound of the previous abrasion on the right side of her face inferior to the orbit and it is very superficial and not amenable to sutures. This will heal by secondary intention. She is stable for discharge and will follow-up with her PCP if needed and return precautions given Quality:SDOH Health Related Social Needs: Health related social needs food insecurity (Z59.41) PFSH All Active Problems (Updated 10/29/24 @ 20:34 by Margarito Glover MD) Facial trauma (Acute) Fall (Acute) Essential hypertension (Acute) Depression (Chronic) Anxiety (Chronic) ADHD (Acute) Seasonal allergies (Acute) Autism (Acute) Stress incontinence of urine (Acute) Perimenopausal (Acute) Premenstrual dysphoric disorder (Acute) Binge eating disorder (Acute) Elevated BP without diagnosis of hypertension (Acute) Medical History (Updated 10/29/24 @ 20:34 by Margarito Glover MD) Polycystic ovarian syndrome H/O hyperemesis gravidarum with all Surgical History (Updated 05/25/22 @ 10:39 by Eun Ba RN, RN) S/P cholecystectomy 04/12 AT [facility] Family History (Updated 01/21/23 @ 09:18 by Kia Clark LPN) Mother Anxiety Depression Hypertension Sister Anxiety Depression Daughter Anxiety Depression Son Anxiety Depression Father Hypertension Glioblastoma Daughter No problems noted. Son No problems noted. Daughter No problems noted. Son No problems noted. Daughter No problems noted. Daughter No problems noted. Son No problems noted. Daughter No problems noted. Paternal Grandmother Breast cancer Diabetes Social History (Updated 01/21/23 @ 09:19 by Kia Clark LPN) Smoking/Tobacco Use Status: Former Tobacco Use tobacco type: cigarettes Quit Date: 07/29/14 Tobacco: How many years used: 11 Quit status: has quit before Second Hand Exposure: No Smoking risk assessment performed?: Yes Alcohol Intake: current Alcohol Intake frequency: holidays/special occasions only Drug use: Occasionally Substance use type: marijuana and other Details: gummy Adopted: No Caregiver/Support person: No Foster care: No Household members: spouse and children Housing: house Number of Children: 10 number of grandchildren: 1 Communication Needs: None Education Level: vocational Do you need help understanding health information?: Rarely current occupation: Unemployed Student - nursing school Pets and animals: Yes (2 cats, 1 dog) Pets and animals: cat(s) and dog(s) Sexually active: Yes Do you think of yourself as: straight/heterosexual Current gender identity: female What is your relationship status?: How often do you talk on the phone with friends or family?: once per week Do you belong to any clubs or organized social groups?: no Panel score (0-1 are the most socially isolated patients): 1 What type of physical activity do you participate in: walking Duration: 15-30 minutes/day Frequency: 1-2 times per week Shivani/Catholic: Faith Special shivani needs: No Seatbelt use: always Helmet use: Yes Drive intox or ride w/intox form setter/driver: No Working smoke detector in home: Yes Fire extinguisher in home: Yes Carbon monox detector in home: Yes Do you feel safe at home: Yes Do you feel safe in your relationship?: Yes Victim of physical abuse: No Female Reproductive History Menstrual Age of Menarche: 13 Duration of menses: 3-5 days control method: natural family planning History History 13 Para Hx # Term Pregnancies 10 Multiple births Hx # Pregnancies Ectopic pregnancies AB induced Hx Number of Living Children AB spontaneous Past Pregnancies Del. Date GA/Weeks # Preg Succ Route Wgt Sex Labor Lgth Anesth esia Location [facility] 09/28/89 40 No Yes vaginal Female [place] 12/05/91 40 No Yes vaginal 3288.545 g Female [facility] 09/06/94 40 No Yes vaginal 3118.448 g Male [facility] 12/25/96 40 No Yes vaginal 3628.739 g Male [facility] 10/15/01 40 No Yes vaginal 3855.535 g Female [facility] 07/21/04 40 No Yes vaginal 3798.836 g Male [facility] 04/11/07 40 No Yes vaginal 3345.244 g Female [facility] 06/01/09 40 No Yes vaginal 3061.748 g Female [facility] 05/09/11 40 No Yes vaginal 3798.836 g Male [facility] 02/09/15 40 No Yes vaginal 3628.739 g Female [facility] Delivery Date: 02/09/15 Last Updated by: Qian Martin Pt reports excess amniotic fluid, external version d/t transverse presentation and hyperthyroidism.
[2024-10-29] MEDS: Acetaminophen 500 MG TAB 1000 MG PO (19:08)
[2024-10-29] MEDS: Lidocaine/Epinephri/Tetracaine Topical Gel 3 ML TP (19:09)
--- NOTE | 2024-10-29 20:29 | DI.VRAD_ITS ---
PROCEDURE INFORMATION: Exam: CT Head Without Contrast Exam date and time: 10/29/2024 7:40 PM Age: 54 years old Clinical indication: Pain and injury or trauma; Blunt trauma (contusions or hematomas); Other: Anterior head/face; Cheek bone and nose; Not specified; Fall, anterior head and face pain TECHNIQUE: Imaging protocol: Computed tomography of the head without contrast. COMPARISON: No relevant prior studies available. FINDINGS: Brain: Benign-appearing anterior midline likely arachnoid cyst or other benign extra-axial cystic space. No edema or hemorrhage. Cerebral ventricles: No ventriculomegaly. Paranasal sinuses: Regarding paranasal sinuses please see maxillofacial CT same date. Mastoid air cells: No mastoid effusion. Bones: The calvarium is intact. Soft tissues: No suspicious lesions. IMPRESSION: No acute intracranial findings. PROCEDURE INFORMATION: Exam: CT Maxillofacial Without Contrast Exam date and time: 10/29/2024 7:40 PM Age: 54 years old Clinical indication: Pain and injury or trauma; Blunt trauma (contusions or hematomas); Other: Anterior head/face; Cheek bone and nose; Not specified; Fall, anterior head and face pain TECHNIQUE: Imaging protocol: Computed tomography of the face without contrast. COMPARISON: No relevant prior studies available. FINDINGS: Paranasal sinuses: Mild mucosal thickening in the paranasal sinuses. Orbital cavities: Mild right paranasal and infraorbital soft tissue swelling with trace foci of emphysema. Bones: No acute fracture or subluxation. Chronic appearing sinonasal recess, extending from region of right middle turbinate across right nasal bone. Soft tissues: Please see above. IMPRESSION: 1. No acute bony pathology. 2. Mild right paranasal and infraorbital soft tissue swelling with trace foci of emphysema. Dictated and Authenticated by: Payton Carrizales MD. Orderin Belen Pimentel MD
[2024-10-29 20:44] VITALS: BP 130/82; PULSE 88; RESP 16; TEMP 36.9; O2SAT 100
== END 2024-10-29 20:45 | disposition home or self-care (01) ==
PROVIDERS: Emergency Provider Emergency Medicine; PCP Nurse Practitioner
DX: S00.211A Abrasion of right eyelid and periocular area, initial encounter (principal); S00.31XA Abrasion of nose, initial encounter; I10 Essential (primary) hypertension; Z87.891 Personal history of nicotine dependence; W01.198A Fall on same level from slipping, tripping and stumbling with subsequent striking against other object, initial encounter; Y93.89 Activity, other specified
CPT/HCPCS: 99284; 70450; 70486